=== PATIENT | female | born 1985 | race Caucasian/White ===

== ENCOUNTER → 2016-11-07 | Day surgery (SDC) | payer OTHER ==
[~2016-11-07] VITALS: Ht 167.6 cm; Wt 79.4 kg
== END | disposition home or self-care (01) ==
LOC: SDC 13:03
DX: K60.1 Chronic anal fissure (principal); K62.89 Other specified diseases of anus and rectum; F17.210 Nicotine dependence, cigarettes, uncomplicated; Z79.899 Other long term (current) drug therapy; E66.3 Overweight
CPT/HCPCS: J1885; J2765